=== PATIENT | male | born 1990 | race Caucasian/White ===

== ENCOUNTER 2017-04-18 18:45 | Emergency (ER) | payer SELFPAY ==
[2017-04-18 18:58] VITALS: BP 123/68
[2017-04-18] MEDS ORDERED: LORazepam INJ* 2 MG/ML 1 ML VIAL IV PUSH ONE (19:24)
[2017-04-18] MEDS ORDERED: Ondansetron INJ* 2 MG/ML VIAL IV ONE (19:24)
[2017-04-18] MEDS ORDERED: NS 0.9% 1000 ML* 1,000 ML BOLUS ONE ×2 (19:24→19:25)
--- NOTE | 2017-04-18 19:31 | UC ---
Abdominal Pain Male HPI - HPI Summary HPI Summary: Generalized abdominal pain, vomiting 2-4 times per day (whenever he eats or drinks) starting a week or more ago. Denies unusual stool symptoms -- typically has BM twice per week. Smokes marijuana 3-4 times per day long-term, no currently formally employed. - History of Current Complaint Hx Obtained From: Patient Onset/Duration: Gradual Onset, Lasting Days Timing: Constant Severity Initially: Moderate Severity Currently: Moderate Pain Intensity: 2 Location: Diffuse Character: Aching, Dull Aggravating Factor(s): Food, Movement Alleviating Factor(s): Nothing Associated Signs And Symptoms: Positive: Vomiting. Negative: Fever, Cough, Diarrhea <Kaylee Kimble - Last Filed: 04/18/17 19:26> <Lissette Hackett - Last Filed: 04/18/17 20:16> - History of Current Complaint Chief Complaint: UCAbdominalPain Stated Complaint: VOMITING Time Seen by Provider: 04/18/17 19:04 - Allergies/Home Medications Allergies/Adverse Reactions: Allergies Allergy/AdvReac Type Severity Reaction Status Date / Time MS Penicillins [PCN] Allergy Hives Verified 09/01/15 13:36 PMH/Surg Hx/FS Hx/Imm Hx Previously Healthy: Yes - Surgical History Surgical History: None - Family History Known Family History: Positive: Unknown - Social History Occupation: Unemployed Lives: With Family Alcohol Use: None Substance Use Type: Marijuana - 3-4 x/day Smoking Status (MU): Heavy Every Day Tobacco Smoker Type: Cigarettes <Kaylee Kimble - Last Filed: 04/18/17 19:26> Review of Systems Constitutional: Negative Skin: Negative Eyes: Negative ENT: Negative Respiratory: Negative Cardiovascular: Negative Gastrointestinal: Vomiting Genitourinary: Negative Motor: Negative Neurovascular: Negative Musculoskeletal: Negative Neurological: Negative Psychological: Negative Is Patient Immunocompromised?: No All Other Systems Reviewed And Are Negative: Yes <Kaylee Kimble - Last Filed: 04/18/17 19:26> Physical Exam Triage Information Reviewed: Yes Appearance: No Pain Distress, Well-Nourished Vital Signs: Initial Vital Signs Temp 98.2 F 04/18/17 18:52 Pulse 92 04/18/17 18:52 Resp 18 04/18/17 18:52 BP 123/68 04/18/17 18:52 Pulse Ox 98 04/18/17 18:52 Vital Signs Reviewed: Yes Eye Exam: Normal Eyes: Positive: Conjunctiva Clear ENT: Positive: Hearing grossly normal, TMs normal, Other - dry MM in mouth. Negative: Nasal congestion, Nasal drainage Dental Exam: Normal Neck exam: Normal Neck: Positive: Supple, Nontender, No Lymphadenopathy Respiratory Exam: Normal Respiratory: Positive: Chest non-tender, Lungs clear, Normal breath sounds, No respiratory distress, No accessory muscle use, Respiratory distress Cardiovascular Exam: Normal Cardiovascular: Positive: RRR, No Murmur Musculoskeletal Exam: Normal Neurological Exam: Normal Neurological: Positive: Alert Psychological Exam: Normal Skin Exam: Normal <Kaylee Kimble - Last Filed: 04/18/17 19:26> Vital Signs: Initial Vital Signs Temp 98.2 F 04/18/17 18:52 Pulse 92 04/18/17 18:52 Resp 18 04/18/17 18:52 BP 123/68 04/18/17 18:52 Pulse Ox 98 04/18/17 18:52 <Lissette Hackett - Last Filed: 04/18/17 20:16> Abd Pain Male Course/Dx - Differential Dx/Clinical Impression Provider Diagnoses: cannabis hyperemesis syndrome <Kaylee Kimble - Last Filed: 04/18/17 19:26> Discharge <Kaylee Kimble - Last Filed: 04/18/17 19:26> <Lissette Hackett - Last Filed: 04/18/17 20:16> - Discharge Plan Condition: Stable Disposition: HOME Prescriptions: Ondansetron TAB* [Zofran 4 MG Tab*] 4 mg PO Q6H PRN #10 tab PRN Reason: Nausea Patient Education Materials: Acute Nausea and Vomiting (ED) Referrals: No Primary Care Phys,NOPCP [Primary Care Provider] - Additional Instructions: As we discussed, your symptoms are likely due to your heavy marijuana use. Continue the ondansetron and increase oral fluids when you stop vomiting. If you are not completely done vomiting tomorrow evening, please go to the emergency department for further testing. Attestation Statement User Type: Provider - I was available for consult. This patient was seen by the advanced practice provider. The patient was not presented to, seen by, or examined by me.-Fariha <Lissette Hackett - Last Filed: 04/18/17 20:16>
[2017-04-18] MEDS ORDERED: Ondansetron ODT TAB* 4 MG PO ONE (20:03)
[2017-04-18] MEDS ORDERED: LORazepam TAB(*) 1 MG PO ONE (20:03)
== END 2017-04-18 20:30 | disposition home or self-care (01) ==
LOC: UCEAST 18:45
DX: F12.188 Cannabis abuse with other cannabis-induced disorder (principal); Z88.0 Allergy status to penicillin
CPT/HCPCS: 99212; A9270-GY; G0463; J2060; J2405

== ENCOUNTER 2018-04-29 13:10 | Emergency (ER) | payer SELFPAY ==
--- NOTE | 2018-04-29 13:17 | UC ---
Abdominal Pain Male HPI - HPI Summary HPI Summary: 27 yo male presents with RLQ abdominal pain since last night. He tells me that his pain came on suddenly accompanied by some nausea. He thought he needed to have a bowel movement, but this did not change his discomfort. Pain worse with standing upright, touching the area, and bending over. He has not had a fever. Last ate last night and had some gatorade prior to arrival today. Denies fever, chills, SOB, chest pain, vomiting, diarrhea, dysuria. No hx of abdominal surgeries. No hx of kidney stone. - History of Current Complaint Stated Complaint: LOW RT SIDE PAIN Time Seen by Provider: 04/29/18 13:16 Hx Obtained From: Patient Onset/Duration: Sudden Onset Severity Initially: Moderate Severity Currently: Moderate Pain Intensity: 4 Pain Scale Used: 0-10 Numeric - Allergies/Home Medications Allergies/Adverse Reactions: Allergies Allergy/AdvReac Type Severity Reaction Status Date / Time Penicillins Allergy Hives Verified 04/29/18 13:21 Home Medications: Home Medications NK [No Home Medications Reported] 04/29/18 [History Confirmed 04/29/18] PMH/Surg Hx/FS Hx/Imm Hx - Additional Past Medical History Additional PMH: None - Surgical History Surgical History: None - Family History Known Family History: Positive: Unknown - Social History Lives: With Family Alcohol Use: None Substance Use Type: Marijuana - 3-4 x/day Smoking Status (MU): Heavy Every Day Tobacco Smoker Type: Cigarettes Review of Systems All Other Systems Reviewed And Are Negative: Yes Constitutional: Positive: Negative Skin: Positive: Negative Respiratory: Positive: Negative Cardiovascular: Positive: Negative Gastrointestinal: Positive: Abdominal Pain, Nausea Genitourinary: Positive: Negative Neurovascular: Positive: Negative Neurological: Positive: Negative Psychological: Positive: Negative Physical Exam - Summary Physical Exam Summary: GENERAL: NAD. WDWN. No pain distress. SKIN: No rashes, sores, lesions, or open wounds. NECK: Supple. Nontender. No lymphadenopathy. CHEST: CTAB. No r/r/w. No accessory muscle use. Breathing comfortably and in no distress. CV: RRR. Without m/r/g. Pulses intact. Cap refill <2seconds ABDOMEN: TTP RLQ over mcburney's point. Positive psoas and obturator. Mild guarding. No distention. Bowel sounds presents. No CVA tenderness. NEURO: Alert. PSYCH: Age appropriate behavior. Triage Information Reviewed: Yes Vital Signs: Vital Signs: Temp Pulse Resp BP Pulse Ox 98.6 F 92 18 116/83 98 04/29/18 13:17 04/29/18 13:17 04/29/18 13:17 04/29/18 13:17 04/29/18 13:17 Laboratory Tests 04/29/18 13:29 POC Urine Color Dark yellow POC Urine Clarity Clear POC Urine pH 6.0 POC Ur Specif [place] >= 1.030 POC Urine Protein 3+ A POC Ur Glucose (UA) Negative POC Urine Ketones Trace A POC Urine Blood 3+ A POC Urine Nitrite Negative POC Urine Bilirubin 1+ A POC Urine Urobilinogen 0.2 POC U Leukocyte Esteras Negative Vital Signs Reviewed: Yes Abd Pain Male Course/Dx - Course Course Of Treatment: Initially I had a high suspicion for appendicitis, but he is afebrile and UA with 3+ blood and protein. Pt remained NPO. Discussed with pt my suspicions for appendicitis, but kidney stone was also in the differential. Discussed going to the ED now vs obtaining a CT here for eval for renal calculi. He elected to proceed with CT here. CT results: IMPRESSION: #. Acute appendicitis. No periappendiceal abscess, appendicolith, or associated bowel. obstruction. Discussed results with pt. Partner with him today will drive him to the ED for further eval/treatment. Advised to remain NPO. Report called to Jacob BLACKWELL in the ED. - Differential Dx/Clinical Impression Provider Diagnosis: Acute appendicitis Discharge - Sign-Out/Discharge Documenting (check all that apply): Patient Departure All imaging exams completed and their final reports reviewed: Yes - Discharge Plan Condition: Stable Disposition: HOME-RECOMMEND TO ED Referrals: No Primary Care Phys,NOPCP [Primary Care Provider] - Additional Instructions: Please go to the ER for further evaluation of your appendicitis - Billing Disposition and Condition Condition: STABLE Disposition: Home-Recommend to ED
[2018-04-29 13:26] VITALS: BP 116/83
== END 2018-04-29 14:10 | disposition home health service (06) ==
LOC: UCEAST 13:10
DX: K35.80 Unspecified acute appendicitis (principal); Z88.0 Allergy status to penicillin; F17.210 Nicotine dependence, cigarettes, uncomplicated
CPT/HCPCS: 74176; 81003; 99211; G0463

== ENCOUNTER 2018-04-29 14:34 | Day surgery (SDC) | payer SELFPAY ==
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
[2018-04-29] MEDS ORDERED: NS 0.9% 1000 ML** 1,000 ML IV ONE ×2 (15:09→16:41)
[2018-04-29] MEDS: NS 0.9% 1000 ML** 1,000 ML IV.FLUID IV ONE ×2 (15:10)
[2018-04-29 15:36] LABS: ABS Basophils 0 10^3/ul (0-0.2); ABS Eosinophils 0 10^3/ul (0-0.6); ABS Lymphocytes 1.6 10^3/ul (1.0-4.8); ABS Neutrophils 2.8 10^3/ul (1.5-7.7); ABS Nucleated RBC 0 10^3/ul; Eosinophil % 0.4 %; Hematocrit 46 % (42-52); Lymphocyte % 29.8 %; Mean Corpuscular HGB Conc 35 g/dl (31-36); Mean Corpuscular Hemoglobin 33 pg (27-31); Mean Corpuscular Volume 93 fL (80-94); Mean Platelet Volume 7.5 fL (7.4-10.4); Nucleated Red Blood Cells % 0; Platelet Count 254 10^3/ul (150-450); Red Blood Count 4.92 10^6/ul (4.00-5.40); Red Cell Distribution Width 15 % (10.5-15); White Blood Count 5.5 10^3/ul (3.5-10.8)
[2018-04-29 15:53] LABS: ALT 15 U/L (7-52); AST 12 U/L (13-39); Albumin 4.5 g/dL (3.2-5.2); Albumin/Globulin Ratio 1.7 (1-3); Alkaline Phosphatase 50 U/L (34-104); Anion Gap 7 mmol/L (2-11); BUN/Creatinine Ratio 17.3 (8-20); Blood Urea Nitrogen 14 mg/dL (6-24); CO2 Carbon Dioxide 27 mmol/L (22-32); Calcium 9.2 mg/dL (8.6-10.3); Chloride 104 mmol/L (101-111); EGFR African American 138.3 (>60); EGFR Non-African American 114.3 (>60); Globulin 2.7 g/dL (2-4); Glucose 96 mg/dL (70-100); Sodium 138 mmol/L (135-145); Total Protein 7.2 g/dL (6.4-8.9)
[2018-04-29] MEDS ORDERED: Morphine VIAL* 10 MG/ML 1 ML VIAL IV ONE (16:41)
[2018-04-29] MEDS ORDERED: Ondansetron INJ* 2 MG/ML VIAL IV ONE (16:41)
[2018-04-29 16:58] LABS: Urine Appearance Clear; Urine Bacteria Absent (Absent); Urine Bilirubin Negative (Negative); Urine Blood 3+ (Negative); Urine Color Yellow; Urine Glucose Negative (Negative); Urine Ketones 1+ (Negative); Urine Nitrite Negative (Negative); Urine Protein Negative (Negative); Urine Red Blood Cell 3+(>10/hpf) (Absent); Urine Specific Gravity 1.011 (1.010-1.030); Urine Urobilinogen Negative (Negative); Urine White Blood Cell Trace(0-5/hpf) (Absent)
[2018-04-29] MEDS ORDERED: Clindamycin 600 MG/D5W BAG(*) 600 MG/50 ML BAG IV ONE (17:19)
[2018-04-29] MEDS ORDERED: Bupivacaine 0.25% W/EPI* 10 ML SDV ONE (17:30)
[2018-04-29] MEDS ORDERED: Propofol* 10 MG/ML 20 ML BTL ONE (17:50)
[2018-04-29] MEDS ORDERED: Lidocaine 2% PF * 5 ML VIAL ONE (17:50)
[2018-04-29] MEDS ORDERED: fentaNYL* 50 MCG/ML 2 ML VIAL (100 MCG VIAL) ONE ×2 (17:50→19:47)
[2018-04-29] MEDS ORDERED: Sodium Citrate/Citric Acid* 15 ML UDC ONE (17:55)
[2018-04-29] MEDS ORDERED: Ketorolac INJ* 30 MG/ML 1 ML VIAL IV PRN (17:59)
[2018-04-29] MEDS ORDERED: PROCHLORPERAZINE INJ 5 MG/ML 2 ML VIAL IV PRN (17:59)
[2018-04-29] MEDS ORDERED: oxyCODONE/Acetamin 5/325 MG* TAB PO PRN (17:59)
[2018-04-29] MEDS ORDERED: Sodium Citrate/Citric Acid* 15 ML UDC PO ONE (17:59)
[2018-04-29] MEDS ORDERED: HYDROcodone/ACETAMIN 5-325 MG* 1 TAB PO PRN (17:59)
[2018-04-29] MEDS ORDERED: Naloxone* 0.4 MG/ML 1 ML VIAL IV PRN (17:59)
--- NOTE | 2018-04-29 18:04 | PN ---
Progress Note - Progress Note Date of Service: 04/29/18 Note: Surgery Progress Note Patient is a 27 yo M with 1 day of right lower quadrant abdominal pain. Please see full dictate H&P for full details. He presented to Urgent care and had a CT scan confirming acute appendicitis. Vitals and WBC are normal. He is tender in the right lower quadrant. Informed consent was obtained for a laparoscopic possible open appendectomy. Risks, benefits and alternatives were discussed with the patient and his mother. Risks include but are not limited to bleeding, infection, injury to nearby anatomic structures such as the bladder , colon, small bowel. He understands and wishes to proceed.
[2018-04-29] MEDS ORDERED: Succinylcholine* 20 MG/ML 10 ML VIAL ONE (18:14)
[2018-04-29] MEDS ORDERED: Phenylephrine IV* 40 MCG/ML 10 ML SYRINGE ONE (18:24)
[2018-04-29] MEDS ORDERED: EPHEDrine (Pressors)* 50 MG/ML VIAL ONE (18:31)
[2018-04-29] MEDS ORDERED: Rocuronium* 10 MG/ML VIAL ONE (18:44)
[2018-04-29] MEDS ORDERED: DiMENhydriNATE IV* 50 MG/ML VIAL ONE (18:47)
[2018-04-29] MEDS ORDERED: Sugammadex * 200 MG/2 ML VIAL IV PUSH ONE (18:55)
[2018-04-29] MEDS ORDERED: Ketorolac INJ* 30 MG/ML 1 ML VIAL ONE (19:32)
[2018-04-29] MEDS: fentaNYL* 50 MCG/ML 2 ML VIAL (100 MCG VIAL) IV PRN ×2 (19:47→19:52)
[2018-04-29 20:14] VITALS: BP 109/82
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
--- NOTE | 2018-04-30 07:51 | OP ---
DATE OF OPERATION: 04/29/18 - [facility] DATE OF : 89 SURGEON: Justine King MD RELIEF OPERATOR: None. ANESTHESIOLOGIST: Dr. Verduzco. ANESTHESIA: General endotracheal anesthesia. PRE-OP DIAGNOSIS: Acute appendicitis. POST-OP DIAGNOSIS: Acute appendicitis. OPERATIVE PROCEDURE: Laparoscopic appendectomy. ESTIMATED BLOOD LOSS: Minimal. SPECIMEN: Appendix. INDICATIONS FOR SURGERY: Mr. Kimble is a very pleasant 27-year-old gentleman who presented to the emergency room with 1 day of right lower quadrant abdominal pain. He underwent a CT scan, which confirmed acute appendicitis. His vital signs were normal. His white count was normal, but given the findings of his CT scan, his abdominal pain, informed consent was obtained for laparoscopic appendectomy. He understood the risks, benefits, and alternatives of the procedure, and he wished to proceed. DESCRIPTION OF PROCEDURE: The patient was brought back to the operating room and placed on the operating table in the supine position. Sequential compression devices were placed in the bilateral lower extremities for DVT prophylaxis. Antibiotics with clindamycin was administered prior to incision. General endotracheal anesthesia was induced and the patient's abdomen was prepped and draped in normal sterile fashion. Prior to beginning the procedure , time-out was performed verifying the patient's name, MR number, and the procedure to be performed. Marcaine 0.25% was infiltrated into the infraumbilical fold. The skin was divided down to the subcutaneous tissue. The fascia was elevated between two Kochers and the abdomen was entered under direct visualization. A 0 Vicryl suture was used to place a stay suture in a [id number] fashion in the fascia to later facilitate closure of this site. A Belgica trocar was placed into the abdomen and the abdomen insufflated to 15 mmHg. Upon general inspection of the abdomen, there was no apparent injury that had been made upon entry with the laparoscope. Next, under direct visualization, two remaining 5-mm trocars were placed, one in the left lower quadrant and one in the lower mid abdomen, above the pubis. Next, the cecum was rotated medially and the appendix was visualized just posterior to the cecum. It was dilated and hyperemic. The mesentery was divided using a LigaSure and the base of the appendix was taken using an EndoGIA 45-mm goal load. Once this was done, the appendix was placed into an EndoCatch bag and removed from the abdomen as a specimen. Inspection of the staple line showed that the base was hemostatic and intact and loose jaun were removed using suction. The right lower quadrant was suctioned minimally and then the pelvis was suctioned out of some turbid looking fluid. Next, all the trocars were removed under direct visualization. The site where the Belgica trocar had been placed was closed under visualization to ensure that nothing was caught with removal of the trocar and its closure, and then once desufflation was totally obtained, all the skin incisions were closed using 4-0 Monocryl suture and sterile dressing was in place. The patient's anesthesia was reversed and he was taken to the PACU in stable condition. At the end of the case, all counts were correct and I was present during the entirety of the case. [id number]/[facility] #: [id number] MTDD
== END 2018-04-29 20:18 | disposition home or self-care (01) ==
LOC: ED 14:34 → OR 18:02
PROVIDERS: ATTEND Surgery
DX: K35.80 Unspecified acute appendicitis (principal); Z72.0 Tobacco use; R10.31 Right lower quadrant pain
CPT/HCPCS: 36415; 80053; 81003; 81015; 83605; 83690; 85025; 86140; 87086; 88304; 96374; 96375; 99283; A9270-GY; C1776; J0330; J1240; J1885; J2270; J2405; J2704; J3010

== ENCOUNTER 2018-06-29 10:09 | Emergency (ER) | payer OTHER ==
[2018-06-29 10:19] VITALS: BP 101/69
--- NOTE | 2018-06-29 10:24 | UC ---
Back Pain HPI - HPI Summary HPI Summary: 27 yo male presents with low back pain. He tells me that he has a history of scoliosis and has had issues with low back pain in the past. On 06/24/18 he was lifting heavy toolboxes with his father. The next day developed low back pain that feels stiff and sharp when he moves. He tried to rest the area and take ibuprofen, but pain has not improved. He denies specific injury, radiation of pain, numbness, leg weakness, saddle anesthesia, or loss of bowel/bladder control. - History of Current Complaint Chief Complaint: UCBackPain Stated Complaint: LOWER BACK PAIN Time Seen by Provider: 06/29/18 10:23 Hx Obtained From: Patient Onset/Duration: Sudden Onset Severity Initially: Moderate Severity Currently: Severe Pain Intensity: 8 Pain Scale Used: 0-10 Numeric - Allergies/Home Medications Allergies/Adverse Reactions: Allergies Allergy/AdvReac Type Severity Reaction Status Date / Time Penicillins Allergy Hives Verified 06/29/18 10:20 PMH/Surg Hx/FS Hx/Imm Hx - Additional Past Medical History Additional PMH: None - Surgical History Surgical History: Yes Surgery Procedure, Year, and Place: Liver lac 2009. appy 2019 - Family History Known Family History: Negative: Cardiac Disease, Hypertension, Diabetes - Social History Occupation: Employed Full-time Lives: With Family Alcohol Use: Occasionally Substance Use Type: Marijuana Substance Use Comment - Amount & Last Used: daily Smoking Status (MU): Heavy Every Day Tobacco Smoker Type: Cigarettes Review of Systems All Other Systems Reviewed And Are Negative: Yes Constitutional: Positive: Negative Skin: Positive: Negative Respiratory: Positive: Negative Cardiovascular: Positive: Negative Neurovascular: Positive: Negative Musculoskeletal: Positive: Other: - LBP Neurological: Positive: Negative Psychological: Positive: Negative Physical Exam - Summary Physical Exam Summary: GENERAL: NAD. WDWN. No pain distress. SKIN: No rashes, sores, lesions, or open wounds. NECK: Supple. FROM. Nontender. No lymphadenopathy. CHEST: CTAB. No r/r/w. No accessory muscle use. Breathing comfortably and in no distress. CV: RRR. Without m/r/g. Pulses intact. Cap refill <2seconds MSK: TTP over lumbar paraspinal muscles. Pain with flexion and extension of spine. Positive SLR b/l for low back pain without radiation. Strength 5/5 B/L LEs including dorsiflexion and plantar flexion. FROM B/L LEs. No edema. NEURO: Alert. Sensations intact B/L LEs L3-S1. Reflexes intact PSYCH: Age appropriate behavior. Triage Information Reviewed: Yes Vital Signs: Initial Vital Signs Temp 98.6 F 06/29/18 10:15 Pulse 83 06/29/18 10:15 Resp 19 06/29/18 10:15 BP 101/69 06/29/18 10:15 Pulse Ox 100 06/29/18 10:15 Vital Signs Reviewed: Yes Back Pain Course/Dx - Course Course Of Treatment: XR: IMPRESSION: Mild levoscoliosis centered at L2-L3. Suspect muscle strain/spasm of low back. In the clinic pt was given toradol IM. Will rx for flexeril and ketorlac po. Advised to practice lower back exercises and apply heat. May take tylenol for breakthrough pain. Work note for today and tomorrow to rest. F/u with [facility] if symptoms do not improve. - Differential Dx/Diagnosis Provider Diagnosis: Low back pain Discharge - Sign-Out/Discharge Documenting (check all that apply): Patient Departure All imaging exams completed and their final reports reviewed: Yes - Discharge Plan Condition: Stable Disposition: HOME Prescriptions: Cyclobenzaprine TAB* [Flexeril 10 MG TAB*] 10 mg PO TID PRN #21 tab PRN Reason: Pain Ketorolac TAB * [Toradol TAB *] 10 mg PO Q6H PRN #20 tab MDD 4 PRN Reason: Pain Patient Education Materials: Back Pain (ED), Lower Back Exercises (ED) Forms: *Work Release Referrals: No Primary Care Phys,NOPCP [Primary Care Provider] - [facility] [Provider Group] - If Needed Additional Instructions: If you develop a fever, shortness of breath, chest pain, new or worsening symptoms - please call your PCP or go to the ED immediately. 1) Apply heat to your lower back to reduce muscle spasm 2) Do NOT take ibuprofen/aleve/naproxen/motrin with the Ketorlac prescription - these medications are related and could interact 3) If your symptoms have not improved in 5-7 days, please call [facility] ([facility]) at the number below to schedule an appointment for a recheck - Billing Disposition and Condition Condition: STABLE Disposition: Home
[2018-06-29] MEDS ORDERED: Ketorolac INJ* 60 MG/2 ML VIAL IM ONE (10:30)
== END 2018-06-29 11:10 | disposition home or self-care (01) ==
LOC: UCEAST 10:09
DX: M54.5 Low back pain (principal); M41.86 Other forms of scoliosis, lumbar region; Z88.0 Allergy status to penicillin; F17.210 Nicotine dependence, cigarettes, uncomplicated
CPT/HCPCS: 72110; 96372; 99212; G0463; J1885

== ENCOUNTER → 2018-07-24 14:58 | Emergency (ER) | payer OTHER ==
[2018-07-24 16:42] VITALS: BP 109/67
--- NOTE | 2018-07-24 17:41 | ED ---
Back Pain - HPI Summary HPI Summary: Patient is a 27-year-old male who presents emergency department for ongoing low back pain times several weeks. Patient states he and lifting injury a few weeks ago where he lifted a heavy toolbox developed low back pain. Patient states he does have a history of school and also some mild low back pain. Patient states that [facility] and was prescribed a muscle relaxer and anti-inflammatories. He was referred to [facility] whom he has seen a few times. Patient states he was on a course of steroids a few weeks ago that did seem to improve pain until he returned to work. Patient states he saw sports medicine today and is being scheduled for an MRI. Patient presents to the ER to see if he can facilitate the process of having MRI performed in the ER today. Patient denies numbness, tingling or weakness into his legs. Denies fever, bowel or bladder incontinence or retention, denies paresthesias. Symptoms are mild in severity. Movement makes symptoms worse. Nothing makes symptoms better. - History of Current Complaint Chief Complaint: EDBackInjuryPain Stated Complaint: LOWER BACK PAIN PER PT Time Seen by Provider: 07/24/18 15:40 Hx Obtained From: Patient Pain Intensity: 5 Pain Scale Used: 0-10 Numeric - Allergies/Home Medications Allergies/Adverse Reactions: Allergies Allergy/AdvReac Type Severity Reaction Status Date / Time Penicillins Allergy Hives Verified 07/24/18 15:08 PMH/Surg Hx/FS Hx/Imm Hx Previously Healthy: Yes Endocrine/Hematology History: Denies: Hx Diabetes, Hx Thyroid Disease Cardiovascular History: Denies: Hx Hypertension Respiratory History: Denies: Hx Asthma, Hx Chronic Obstructive Pulmonary Disease (COPD) GI History: Denies: Hx Ulcer Musculoskeletal History: Reports: Hx Scoliosis - Surgical History Surgery Procedure, Year, and Place: Liver lac 2009. appy 2019 Infectious Disease History: No Infectious Disease History: Denies: Hx Hepatitis, Hx Human Immunodeficiency Virus (HIV), Traveled Outside the [place] in Last 30 Days - Family History Known Family History: Positive: Non-Contributory Negative: Cardiac Disease, Hypertension, Diabetes - Social History Occupation: Employed Full-time Lives: With Family Alcohol Use: Occasionally Substance Use Type: Reports: Marijuana Substance Use Comment - Amount & Last Used: daily Smoking Status (MU): Heavy Every Day Tobacco Smoker Type: Cigarettes Review of Systems Constitutional: Negative Negative: Fever, Chills Gastrointestinal: Negative Negative: Abdominal Pain, Vomiting, Diarrhea Genitourinary: Negative Negative: dysuria Positive: Other - low back pain that radiates into legs Skin: Negative Neurological: Negative Negative: Weakness, Paresthesia, Numbness All Other Systems Reviewed And Are Negative: Yes Physical Exam Triage Information Reviewed: Yes Vital Signs On Initial Exam: Initial Vitals Temp Pulse Resp BP Pulse Ox 98.5 F 90 16 125/89 97 07/24/18 15:04 07/24/18 15:04 07/24/18 15:04 07/24/18 15:04 07/24/18 15:04 Vital Signs Reviewed: Yes Appearance: Positive: Well-Appearing - Pt. sitting on bed in NAD. SO present. Skin: Positive: Warm, Dry Head/Face: Positive: Normal Head/Face Inspection Eyes: Positive: Normal, EOMI, NATALIYA Neck: Positive: Supple Musculoskeletal: Positive: Normal, Strength/ROM Intact, Other - 5/5 strength in bilateral LEs. Positive straight leg test bilaterally. Diffuse low lumbar tenderness. Neurological: Positive: Normal, CN Intact II-III Psychiatric: Positive: Affect/Mood Appropriate Diagnostics - Vital Signs Vital Signs Temp Pulse Resp BP Pulse Ox 07/24/18 16:41 99.0 F 82 16 109/67 99 07/24/18 15:04 98.5 F 90 16 125/89 97 - Laboratory Lab Statement: Any lab studies that have been ordered have been reviewed, and results considered in the medical decision making process. Back Pain Course/Dx - Course Course Of Treatment: Patient presenting with ongoing low back pain. He has no neuro deficits on exam or evidence of cauda equina syndrome. Explained to patient there is no indication to obtain MRI in the ER today. We'll try another course of steroids. Suscept he has disc herniation. Advised to avoid heavy lifting apply warm compresses. Patient will follow up with scheduled outpatient MRI and sports medicine as scheduled. Given warning signs to return to the ER. Patient understands and agrees with plan. - Diagnoses Differential Diagnosis/HQI/PQRI: Positive: Herniated Disc, Strain, Sprain Provider Diagnoses: Lumbar radiculopathy Discharge - Sign-Out/Discharge Documenting (check all that apply): Patient Departure Patient Received Moderate/Deep Sedation with Procedure: No - Discharge Plan Condition: Good Disposition: HOME Prescriptions: methylPREDNISolone [Medrol Dosepak 4 MG*] 0 mg PO .SEE YARY INSTRUCTION #1 tab Patient Education Materials: Lumbar Radiculopathy (ED) Referrals: Robert Noriega MD [Medical Doctor] - Additional Instructions: Follow up with Dr. Noriega as scheduled Follow up for MRI as scheduled Steroid pack as directed Avoid heavy lifting Return to ER if symptoms change or worsen - Billing Disposition and Condition Condition: GOOD Disposition: Home
== END | disposition home or self-care (01) ==
LOC: ED 14:58
DX: M54.16 Radiculopathy, lumbar region (principal); M41.9 Scoliosis, unspecified; F17.210 Nicotine dependence, cigarettes, uncomplicated; Z88.0 Allergy status to penicillin
CPT/HCPCS: 99281